=== PATIENT | female | born 1985 | race Caucasian/White ===

== ENCOUNTER 2020-05-24 07:23 | Emergency (ER) | payer OTHER ==
[~2020-05-24] VITALS: Ht 160 cm; Wt 122.4 kg
[2020-05-24] MEDS ORDERED: FAMOTIDINE 20MG/2ML IV (PEPCID) IV STA (07:37)
[2020-05-24] MEDS ORDERED: LIDOCAINE 2% VISCOUS 15 ML UDC PO ONE (07:45)
[2020-05-24] MEDS ORDERED: ANTACID SUSP 30 ML UDC (MYLANTA) PO ONE (07:45)
[2020-05-24] MEDS ORDERED: ONDANSETRON 4 MG/2 ML (SDV) Z0FRAN IVP ONE (07:45)
--- NOTE | 2020-05-24 07:46 | ED Abdominal Pain ---
General Chief Complaint: Abdominal/GI Problems Stated Complaint: SOA;R SIDE PAIN Source of Information: Patient Exam Limitations: No Limitations History of Present Illness Date Seen by Provider: May 24, 2020 Time Seen by Provider: 07:25 Initial Comments Patient presents ER by private conveyance from home with chief complaint of 2 days progressively worsening pain in her left upper quadrant abdominal area. She describes it as burning, intermittent non-itchy. She says it hurts when she takes a big deep breath in. She's had a dry nonproductive cough for the past month that has not sought any help for. 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 She has a history of anxiety and a poor SOB. No history of shingles or rash. No fevers or chills but she does have some nausea occasionally. She had a normal bowel movement earlier today. She's had 4 C-sections but no other intra- abdominal surgeries. No trauma. She takes Prilosec daily for GERD. Allergies and Home Medications Allergies Coded Allergies: carisoprodol (Verified Allergy, Unknown, Hives, 05/24/20) ketorolac (Verified Allergy, Unknown, 05/24/20) angry prochlorperazine (Verified Allergy, Unknown, 05/24/20) angry Patient Home Medication List Home Medication List Reviewed: Yes Review of Systems Review of Systems Constitutional: No chills, No diaphoresis, No fever EENTM: No Blurred Vision, No Double Vision Respiratory: See HPI, Cough (dry, nonproductive); Denies Shortness of Air (increasing pain on deep inspiration) Cardiovascular: Denies Chest Pain, Denies Edema, Denies Palpitations, Denies Syncope Gastrointestinal: See HPI, Abdominal Pain; Denies Constipated, Denies Diarrhea; Nausea Genitourinary: Denies Burning, Denies Discharge Musculoskeletal: No back pain, No joint pain Psychiatric/Neurological: See HPI, Anxiety All Other Systems Reviewed Negative Unless Noted: Yes Past Sxbjhat-Rdvqqy-Zodytt Hx Patient Social History Alcohol Use: Denies Use Recreational Drug Use: No Smoking Status: Former Smoker Type Used: Cigarettes Former Smoker, Quit: May 24, 2020 Physical Exam Vital Signs Vital Signs - First Documented 05/24/20 07:28 Temp 36.7 Pulse 98 Resp 20 B/P (MAP) 148/106 (120) Pulse Ox 98 O2 Delivery Room Air Capillary Refill : Height/Weight/BMI Height: '" Weight: lbs. oz. kg; BMI Method: General Appearance: WD/WN, no apparent distress HEENT: normal ENT inspection, pharynx normal Neck: full range of motion, supple, normal inspection Respiratory: chest non-tender, lungs clear, normal breath sounds, no respiratory distress, no accessory muscle use Cardiovascular: normal peripheral pulses, regular rate, rhythm, no edema Peripheral Pulses: 2+ Radial Pulses (R), 2+ Radial Pulses (L) Gastrointestinal: normal bowel sounds, soft, no organomegaly, tenderness (intense tenderness left upper quadrant. Negative for Maher sign McBurney's point Rovsing or psoas signs) Extremities: normal range of motion, non-tender, normal capillary refill Neurologic/Psychiatric: alert, normal mood/affect, oriented x 3 Skin: normal color, warm/dry Progress/Results/Core Measures Results/Orders Lab Results Laboratory Tests Test 05/24/20 07:50 05/24/20 07:58 Range/Units White Blood Count 7.9 4.3-11.0 10^3/uL Red Blood Count 4.65 4.35-5.85 10^6/uL Hemoglobin 12.7 11.5-16.0 G/DL Hematocrit 40 35-52 % Mean Corpuscular Volume 86 80-99 FL Mean Corpuscular Hemoglobin 27 25-34 PG Mean Corpuscular Hemoglobin Concent 32 32-36 G/DL Red Cell Distribution Width 13.8 10.0-14.5 % Platelet Count 373 130-400 10^3/uL Mean Platelet Volume 9.3 7.4-10.4 FL Neutrophils (%) (Auto) 69 42-75 % Lymphocytes (%) (Auto) 20 12-44 % Monocytes (%) (Auto) 8 0-12 % Eosinophils (%) (Auto) 2 0-10 % Basophils (%) (Auto) 0 0-10 % Neutrophils # (Auto) 5.5 1.8-7.8 X 10^3 Lymphocytes # (Auto) 1.6 1.0-4.0 X 10^3 Monocytes # (Auto) 0.6 0.0-1.0 X 10^3 Eosinophils # (Auto) 0.2 0.0-0.3 10^3/uL Basophils # (Auto) 0.0 0.0-0.1 10^3/uL Sodium Level 139 135-145 MMOL/L Potassium Level 3.7 3.6-5.0 MMOL/L Chloride Level 105 98-107 MMOL/L Carbon Dioxide Level 25 21-32 MMOL/L Anion Gap 9 5-14 MMOL/L Blood Urea Nitrogen 9 7-18 MG/DL Creatinine 0.74 0.60-1.30 MG/DL Estimat Glomerular Filtration Rate > 60 BUN/Creatinine Ratio 12 Glucose Level 121 H 70-105 MG/DL Calcium Level 9.0 8.5-10.1 MG/DL Corrected Calcium 8.9 8.5-10.1 MG/DL Total Bilirubin 0.3 0.1-1.0 MG/DL Aspartate Amino Transf (AST/SGOT) 21 5-34 U/L Alanine Aminotransferase (ALT/SGPT) 30 0-55 U/L Alkaline Phosphatase 77 40-136 U/L C-Reactive Protein High Sensitivity 2.26 H 0.00-0.50 MG/DL Total Protein 8.2 6.4-8.2 GM/DL Albumin 4.1 3.2-4.5 GM/DL Lipase 33 8-78 U/L Monoscreen NEGATIVE NEGATIVE Urine Color YELLOW Urine Clarity CLEAR Urine pH 6.0 5-9 Urine Specific [place] 1.025 H 1.016-1.022 Urine Protein NEGATIVE NEGATIVE Urine Glucose (UA) NEGATIVE NEGATIVE Urine Ketones NEGATIVE NEGATIVE Urine Nitrite NEGATIVE NEGATIVE Urine Bilirubin NEGATIVE NEGATIVE Urine Urobilinogen 0.2 < = 1.0 MG/DL Urine Leukocyte Esterase NEGATIVE NEGATIVE Urine RBC (Auto) 2+ H NEGATIVE Urine RBC 0-2 /HPF Urine WBC 0-2 /HPF Urine Squamous Epithelial Cells 10-25 H /HPF Urine Crystals NONE /LPF Urine Bacteria FEW H /HPF Urine Casts NONE /LPF Urine Mucus SMALL H /LPF Urine Culture Indicated NO My Orders Orders - YVROSE WALDROP Ua Culture If Indicated (05/24/20 07:37) Cbc With Automated Diff (05/24/20 07:37) Comprehensive Metabolic Panel (05/24/20 07:37) Lipase (05/24/20 07:37) Urine Bedside (05/24/20 07:37) Hs C Reactive Protein (05/24/20 07:37) Monotest (05/24/20 07:37) Ondansetron Injection (Zofran Injectio (05/24/20 07:45) Lidocaine 2% Viscous 15 Ml (Xylocaine Vi (05/24/20 07:45) Antacid Suspension (Mylanta Suspension (05/24/20 07:45) Famotidine Injection (Pepcid Injection) (05/24/20 07:37) Ed Iv/Invasive Line Start (05/24/20 09:00) Chest Pa/Lat (2 View) (05/24/20 09:05) Medications Given in ED Current Medications Medications Dose Ordered Sig/[place] Route Start Time Stop Time Status Last Admin Dose Admin Ondansetron HCl 4 mg ONCE ONCE IVP 05/24/20 07:45 05/24/20 07:46 DC 05/24/20 08:03 4 MG Vital Signs/I&O 05/24/20 07:28 Temp 36.7 Pulse 98 Resp 20 B/P (MAP) 148/106 (120) Pulse Ox 98 O2 Delivery Room Air Progress Progress Note #1: Time: 07:45 Progress Note Patient does not have a sore throat or fever but we'll get a mono screen as she does have tenderness over palpation of her sling. No splenomegaly palpable. She could have pleuritic pain across the diaphragm or gastritis as well as pancreatitis however she predisposing conditions for pancreatitis. We'll check some labs and urinalysis and give her a GI cocktail as well as Zofran for [place]. She's not seeing some improvement or has concerning labs and get a CT looking for structural signs. Progress Note #2: Time: 09:06 Progress Note The patient declined the GI cocktail. We did offer NSAIDs for her pain and she declined stating she can just take Tylenol or broken home. She says Toradol makes her very angry that she does not like to take it. 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 Suspect this is likely GERD however record and get a 2 view chest x-ray since it has some pleuritic nature to make sure there is not a atypical pneumonia. We may then cover her with Carafate and Prilosec 20 mg twice a day if there does not appear to be infectious source of her discomfort. Diagnostic Imaging Diagonstic Imaging: Xray Plain Films/CT/US/NM/MRI: chest (2v) Comments NAME: TRAMAINE MALDONADO [facility] REC#: [id number] PT STATUS: REG ER : 1985 PHYSICIAN: YVROSE WALDROP MD ADMIT DATE: 05/24/20/ER Draft Date of Exam:05/24/20 CHEST PA/LAT (2 VIEW) PA and lateral chest at 934 hours. INDICATION: Shortness of breath. There are no prior studies available for comparison. FINDINGS: Heart size is within normal limits. The lungs are clear. There is no evidence for failure, pneumonia or for pleural effusion. The mediastinum is not widened. The osseous structures are intact. IMPRESSION: There is no evidence for active disease. Dictated on workstation # [id number] Dict: 05/24/20927 Trans: 05/24/20929 [id number] Interpreted by: AUGUSTINE GEIGER MD Electronically signed by: Reviewed: Reviewed by Me Departure Impression Primary Impression: Gastritis Qualified Codes: K29.00 - Acute gastritis without bleeding Disposition: HOME, SELF-CARE Condition: Stable Departure-Patient Inst. Decision time for Depature: 09:45 Referrals: LEX GAINES DO Patient Instructions: Gastritis (DC) Add. Discharge Instructions: I suspect your pain may be related to the lining of your stomach. To test this really put you on Carafate which should coat and line your stomach and protected if there is an ulcer. Take the Carafate 30 minutes prior to meals and at bedtime for a total of 4 times a day. Do this for the next 2 weeks. If you're not seeing improvement you may follow-up either with your primary care doctor or if you choose you may go see Dr. Gaines and discuss endoscopy. Prilosec 20 mg twice a day for the next 4 weeks. Return to the ER if you have fever, intractable pain or vomiting. Ondansetron one tablet every 6 hours as necessary for nausea. All discharge instructions reviewed with patient and/or family. Voiced understanding. Scripts Omeprazole (Omeprazole) 20 Mg Capsule. 20 MG PO BID for 30 Days, #60 CAP 0 Refills Prov: YVROSE WALDROP 05/24/20 Sucralfate (Carafate) 1 Gm Tablet 1 GM PO QIDACHS for 14 Days, #56 TAB 0 Refills Prov: YVROSE WALDROP 05/24/20 Ondansetron (Ondansetron Odt) 4 Mg Tab.rapdis 4 MG PO Q6H PRN for NAUSEA/VOMITING, #8 TAB 0 Refills Prov: YVROSE WALDROP 05/24/20 Copy Copies To 1: LEX GAINES DO YVROSE WALDROP May 24, 2020 07:46
[2020-05-24 08:04] LABS: BASOPHILS % (AUTO) 0 % (0-10); EOSINOPHILS # (AUTO) 0.2 10^3/uL (0.0-0.3); EOSINOPHILS % (AUTO) 2 % (0-10); HEMATOCRIT 40 % (35-52); HEMOGLOBIN 12.7 G/DL (11.5-16.0); LYMPHOCYTES # (AUTO) 1.6 X 10^3 (1.0-4.0); LYMPHOCYTES % (AUTO) 20 % (12-44); MEAN CORPUSCULAR HEMOGLOBIN 27 PG (25-34); MEAN CORPUSCULAR HGB CONC 32 G/DL (32-36); MEAN CORPUSCULAR VOLUME 86 FL (80-99); MEAN PLATELET VOLUME 9.3 FL (7.4-10.4); MONOCYTES # (AUTO) 0.6 X 10^3 (0.0-1.0); MONOCYTES % (AUTO) 8 % (0-12); NEUTROPHILS # (AUTO) 5.5 X 10^3 (1.8-7.8); NEUTROPHILS % (AUTO) 69 % (42-75); PLATELET COUNT 373 10^3/uL (130-400); RED CELL DISTRIBUTION WIDTH 13.8 % (10.0-14.5); WHITE BLOOD COUNT 7.9 10^3/uL (4.3-11.0)
[2020-05-24 08:12] LABS: BILIRUBIN,URINE NEGATIVE (NEGATIVE); CLARITY,URINE CLEAR; COLOR,URINE YELLOW; GLUCOSE, URINE (UA) NEGATIVE (NEGATIVE); KETONES,URINE NEGATIVE (NEGATIVE); LEUKOCYTE ESTERASE ,URINE NEGATIVE (NEGATIVE); NITRITE,URINE NEGATIVE (NEGATIVE); PROTEIN,URINE NEGATIVE (NEGATIVE)
[2020-05-24 08:18] LABS: BACTERIA,URINE FEW /HPF; RBC,URINE 0-2 /HPF; WBC,URINE 0-2 /HPF
[2020-05-24 08:27] LABS: ALANINE AMINOTRANSFERASE 30 U/L (0-55); ALBUMIN 4.1 GM/DL (3.2-4.5); ALKALINE PHOSPHATASE 77 U/L (40-136); BILIRUBIN,TOTAL 0.3 MG/DL (0.1-1.0); BUN/CREATININE RATIO 12; CARBON DIOXIDE 25 MMOL/L (21-32); CHLORIDE 105 MMOL/L (98-107); CREATININE SERUM 0.74 MG/DL (0.60-1.30); GFR ESTIMATED > 60; GLUCOSE 121 MG/DL (70-105); LIPASE 33 U/L (8-78); POTASSIUM 3.7 MMOL/L (3.6-5.0); SODIUM 139 MMOL/L (135-145); TOTAL PROTEIN 8.2 GM/DL (6.4-8.2)
--- NOTE | 2020-05-24 08:43 | NUR ---
Pt declining to take the GI cocktail due to concerns of the numbing of the lidocaine causing pt to have anxiety. Dr. Tinsley notified.
[2020-05-24] MEDS ORDERED: NS IV 1000 ML 1,000 ML IV SCH (09:00)
[2020-05-24] MEDS ORDERED: NS IV 1000 ML 1,000 ML IV ONE (09:00)
--- NOTE | 2020-05-24 09:30 | Diagnostic Imaging Report ---
PA and lateral chest at 934 hours. INDICATION: Shortness of breath. There are no prior studies available for comparison. FINDINGS: Heart size is within normal limits. The lungs are clear. There is no evidence for failure, pneumonia or for pleural effusion. The mediastinum is not widened. The osseous structures are intact. IMPRESSION: There is no evidence for active disease. Dictated by: Dictated on workstation # [id number]
[2020-05-24] MEDS ORDERED: OMEP20CA18 PO (10:35)
[2020-05-24] MEDS ORDERED: SUCR1TAB36 PO (10:35)
[2020-05-24] MEDS ORDERED: ONDA4TAB11 PO (10:35)
[2020-05-24 10:40] VITALS: BP 129/92
== END 2020-05-24 10:41 | disposition home or self-care (01) ==
LOC: ER 07:25
DX: K29.70 Gastritis, unspecified, without bleeding (principal); K21.9 Gastro-esophageal reflux disease without esophagitis; Z88.6 Allergy status to analgesic agent; Z88.8 Allergy status to other drugs, medicaments and biological substances; Z87.891 Personal history of nicotine dependence
CPT/HCPCS: 36415; 71046; 80053; 81000; 83690; 84703; 85025; 86141; 86308

== ENCOUNTER 2023-02-24 20:17 | Emergency (ER) | payer OTHER ==
[~2023-02-24] VITALS: Ht 157.4 cm; Wt 108.0 kg
[~2023-02-24 20:17] MED LIST: OMEP20CA18 PO; ONDA4TAB11 PO; SUCR1TAB36 PO
[2023-02-24 20:36] VITALS: BP 129/90
--- NOTE | 2023-02-24 21:05 | ED Lower Extremity ---
General Chief Complaint: Lower Extremity Stated Complaint: LEFT HIP KNOT/PAIN/SWELLING Nursing Triage Note: PT AMB TO FT 2 WITH C/O L LEG PAIN SINCE THURSDAY EVENING. PT STATES HER THIGH STARTED SWELLING AND FEELS HOT AND RED Source: patient Exam Limitations: no limitations History of Present Illness Date Seen by Provider: February 24, 2023 Time Seen by Provider: 20:55 Initial Comments This 37-year-old young lady presents to the emergency room with complaints of pain and swelling of the left leg. Symptoms started February 22 with a "knot" on the left posterior lateral calf. She then developed some pain that migrated up to the anterior left thigh and left lateral thigh. There is subtle blanching tender erythema of the distal left anterior thigh. There is swelling of the skin on the left lateral thigh. 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 She denies any shortness of breath or chest pain. She denies any injury to her leg. She denies as her has had vasectomy. She vapes nicotine but otherwise denies any drugs or alcohol. She is prediabetic. Allergies and Home Medications Allergies Coded Allergies: carisoprodol (Verified Allergy, Unknown, Hives, 05/24/20) ketorolac (Verified Allergy, Unknown, 05/24/20) angry prochlorperazine (Verified Allergy, Unknown, 05/24/20) angry Patient Home Medication List Home Medication List Reviewed: Yes Cephalexin (Cephalexin) 500 Mg Tablet, 500 MG PO QID Prescribed by: RIAZ SY on 02/24/23 2212 Omeprazole (Omeprazole) 20 Mg Capsule.dr, 20 MG PO BID Prescribed by: YVROSE WALDROP on 05/24/20 1035 Ondansetron (Ondansetron Odt) 4 Mg Tab.rapdis, 4 MG PO Q6H PRN for NAUSEA/VOMITING Prescribed by: YVROSE WALDROP on 05/24/20 1035 Sucralfate (Carafate) 1 Gm Tablet, 1 GM PO QIDACHS Prescribed by: YVROSE WALDROP on 05/24/20 1035 Review of Systems Constitutional: no symptoms reported EENTM: no symptoms reported Respiratory: no symptoms reported Cardiovascular: no symptoms reported Genitourinary: no symptoms reported : No Musculoskeletal: see HPI Skin: see HPI Psychiatric/Neurological: No Symptoms Reported Past Qscfftm-[id number]-Kvtpbm Hx Patient Social History Tobacco Use?: No Use of E-Cig and/or Vaping dev: Yes E-Cig or Vaping type used: Nicotine Substance use?: No Alcohol Use?: No Pt feels they are or have been: No Past Medical History Surgery/Hospitalization HX: Surgeries: Yes Section Respiratory: No Cardiac: No Neurological: No Last Menstrual Period: Jan 21, 2023 Genitourinary: No Gastrointestinal: No Musculoskeletal: No Endocrine: No HEENT: No Cancer: No Psychosocial: Yes (agoraphobia and panic attacks) Anxiety Integumentary: No Physical Exam Vital Signs Vital Signs - First Documented 02/24/23 20:36 Temp 36.2 Pulse 97 Resp 14 B/P (MAP) 129/90 (103) Capillary Refill : Height, Weight, BMI Height: '" Weight: lbs. oz. kg; 43.00 BMI Method: General Appearance: WD/WN, no apparent distress HEENT: normal ENT inspection Neck: normal inspection Cardiovascular: regular rate, rhythm, no edema, no murmur Respiratory: lungs clear, normal breath sounds, no respiratory distress Legs: left leg other (Lower leg is relatively unremarkable. There is a blanching warm tender erythema to the left distal anterior thigh. There is subtle swelling to the left lateral thigh. Calf is nontender. No swelling, heat, or erythema of the calf.) Neurologic/Tendon: normal sensation, normal motor functions Neurologic/Psychiatric: no motor/sensory deficits, alert, normal mood/affect Skin: warm/dry, other (See above) Progress/Results/Core Measures Results/Orders Lab Results Laboratory Tests Test 02/24/23 21:30 Range/Units White Blood Count 11.6 H 4.3-11.0 10^3/uL Red Blood Count 4.62 3.80-5.11 10^6/uL Hemoglobin 12.7 11.5-16.0 g/dL Hematocrit 40 35-52 % Mean Corpuscular Volume 86 80-99 fL Mean Corpuscular Hemoglobin 28 25-34 pg Mean Corpuscular Hemoglobin Concent 32 32-36 g/dL Red Cell Distribution Width 14.0 10.0-14.5 % Platelet Count 335 130-400 10^3/uL Mean Platelet Volume 9.6 9.0-12.2 fL Immature Granulocyte % (Auto) 0 % Neutrophils (%) (Auto) 74 42-75 % Lymphocytes (%) (Auto) 19 12-44 % Monocytes (%) (Auto) 5 0-12 % Eosinophils (%) (Auto) 1 0-10 % Basophils (%) (Auto) 0 0-10 % Neutrophils # (Auto) 8.6 H 1.8-7.8 10^3/uL Lymphocytes # (Auto) 2.2 1.0-4.0 10^3/uL Monocytes # (Auto) 0.6 0.0-1.0 10^3/uL Eosinophils # (Auto) 0.2 0.0-0.3 10^3/uL Basophils # (Auto) 0.1 0.0-0.1 10^3/uL Immature Granulocyte # (Auto) 0.0 0.0-0.1 10^3/uL D-Dimer 0.30 0.00-0.49 UG/ML C-Reactive Protein High Sensitivity 2.41 H 0.00-0.50 MG/DL Serum Test, Qualitative NEGATIVE NEGATIVE My Orders Orders - RIAZ MORRISON MD Cbc With Automated Diff (02/24/23 21:03) Hs C Reactive Protein (02/24/23 21:03) Fibrin Degradation Products (02/24/23 21:03) Hcg,Qualitative Serum (02/24/23 21:03) Cephalexin Capsule (Keflex Capsule) (02/24/23 22:15) Medications Given in ED Current Medications Medications Dose Ordered Sig/[place] Route Start Time Stop Time Status Last Admin Dose Admin Cephalexin HCl 500 mg ONCE ONCE PO 02/24/23 22:15 02/24/23 22:16 DC 02/24/23 22:18 500 MG Vital Signs/I&O 02/24/23 20:36 Temp 36.2 Pulse 97 Resp 14 B/P (MAP) 129/90 (103) Blood Pressure Mean: 103 Progress Progress Note : Progress Note Patient was interviewed and examined. Ultrasound was not available during these evening hours. D-dimer was obtained as a substitute. CRP and CBC were obtained as well. Serum test was obtained and was negative. CBC and CRP were minimally elevated. D-dimer was normal. This combination of labs was interpreted by me to more likely represent cellulitis. DVT is unlikely with normal D-dimer. Patient was treated with Keflex and discharged with return precautions. Departure Impression Primary Impression: Cellulitis of left leg Disposition: HOME, SELF-CARE Condition: Stable Departure-Patient Inst. Decision time for Depature: 22:00 Referrals: NO,LOCAL PHYSICIAN (PCP/Family) Primary Care Physician Patient Instructions: Cellulitis (Skin Infection), Adult ED Add. Discharge Instructions: You were evaluated for blood clot with a blood test called D-dimer. The result was negative which means blood clot is unlikely. Your WBC (white blood cell count) and CRP (C-reactive protein) inflammatory marker were both mildly elevated. These values would suggest infection of the skin (cellulitis). This can be treated with antibiotics. Please start your antibiotics as soon as possible in the morning. You may have some mild worsening of condition until the antibiotics can take effect. You should be experiencing improvement by 48 hours after starting antibiotic therapy. Return to care if you have worsening symptoms including significant worsening of redness, pain, or swelling as well as development of fever greater than 100.3. You may take Tylenol (acetaminophen) and/or ibuprofen for pain. Elevate your foot toward the level of your heart is much as possible to reduce pain and swelling. Avoid being sedentary for prolonged periods of time. When you are working at home, get up and walk frequently. All discharge instructions reviewed with patient and/or family. Voiced understanding. Scripts Cephalexin (Cephalexin) 500 Mg Tablet 500 MG PO QID, #40 TAB Prov: RIAZ MORRISON MD 02/24/23 RIAZ MORRISON MD February 24, 2023 21:05
[2023-02-24 21:38] LABS: BASOPHILS # (AUTO) 0.1 10^3/uL (0.0-0.1); BASOPHILS % (AUTO) 0 % (0-10); EOSINOPHILS # (AUTO) 0.2 10^3/uL (0.0-0.3); EOSINOPHILS % (AUTO) 1 % (0-10); HEMATOCRIT 40 % (35-52); HEMOGLOBIN 12.7 g/dL (11.5-16.0); LYMPHOCYTES # (AUTO) 2.2 10^3/uL (1.0-4.0); LYMPHOCYTES % (AUTO) 19 % (12-44); MEAN CORPUSCULAR HEMOGLOBIN 28 pg (25-34); MEAN CORPUSCULAR HGB CONC 32 g/dL (32-36); MEAN CORPUSCULAR VOLUME 86 fL (80-99); MEAN PLATELET VOLUME 9.6 fL (9.0-12.2); MONOCYTES # (AUTO) 0.6 10^3/uL (0.0-1.0); MONOCYTES % (AUTO) 5 % (0-12); NEUTROPHILS # (AUTO) 8.6 10^3/uL (1.8-7.8); NEUTROPHILS % (AUTO) 74 % (42-75); PLATELET COUNT 335 10^3/uL (130-400); WHITE BLOOD COUNT 11.6 10^3/uL (4.3-11.0)
[2023-02-24] MEDS ORDERED: CEPH500T PO (22:12)
[2023-02-24] MEDS ORDERED: CEPHALEXIN 250 MG (KEFLEX) CAP PO ONE (22:15)
== END 2023-02-24 22:21 | disposition home or self-care (01) ==
LOC: EDUNIT# 20:17 → ER 20:20
DX: L03.116 Cellulitis of left lower limb (principal); R79.82 Elevated C-reactive protein (CRP); F17.290 Nicotine dependence, other tobacco product, uncomplicated
CPT/HCPCS: 36415; 84703; 85025; 85379; 86141